=== PATIENT | male | born 1995 | race Caucasian/White ===

== ENCOUNTER 2021-02-02 09:32 | Emergency (ER) | payer OTHER ==
[2021-02-02] MEDS ORDERED: ADVIL 200MG TA200 MG PO (09:40)
[2021-02-02 10:18] LABS: BASO # 0.03 (0.02-0.10); EOS # 0.05 (0.04-0.40); EOS % 0.7 % (0.0-4.0); HEMATOCRIT 39.2 % (42.0-52.0); HEMOGLOBIN 12.2 g/dL (13.5-18.0); MEAN CELL VOLUME 60 fl (78-100); MEAN CORPUSCULAR HEMOGLOBIN 19 pg (27-31); MEAN CORPUSCULAR HGB CONC 31 g/dL (33-37); MEAN PLATELET VOLUME 9.7 fl (7.4-10.4); MONO # 0.37 (0.20-0.80); PLATELET COUNT 269 K/mm3 (130-400); RED BLOOD COUNT 6.49 M/mm3 (4.20-5.60); RED CELL DISTRIBUTION WIDTH 17.9 % (11.5-14.5); WHITE BLOOD COUNT 6.8 K/mm3 (4.8-10.8)
[2021-02-02 10:19] LABS: ALBUMIN 4.5 g/dL (3.5-5.0); POTASSIUM 4.5 mmol/L (3.5-5.1); SODIUM 137 mmol/L (136-145)
[2021-02-02 10:20] LABS: CALCIUM 9.1 mg/dL (8.3-10.5)
[2021-02-02 10:22] LABS: GLUCOSE 108 mg/dL (75-110); TOTAL PROTEIN 7.3 g/dL (6.4-8.3)
[2021-02-02 10:23] LABS: CARBON DIOXIDE 23 mmol/L (22-29); TOTAL BILIRUBIN 0.6 mg/dL (0.2-1.2)
[2021-02-02 10:25] LABS: ALCOHOL IN-HOUSE < 10 mg/dL (<10); URINE APPEARANCE CLEAR; URINE BILIRUBIN NEGATIVE (NEGATIVE); URINE BLOOD NEGATIVE (NEGATIVE); URINE COLOR YELLOW; URINE GLUCOSE NEGATIVE (NEGATIVE); URINE KETONE NEGATIVE (NEGATIVE); URINE LEUKOCYTE ESTERASE NEGATIVE (NEGATIVE); URINE MUCUS PRESENT (NOT PRESENT); URINE NITRATE NEGATIVE (NEGATIVE); URINE PROTEIN(semi-quant) NEGATIVE (NEGATIVE); URINE UROBILINOGEN NORMAL (NORMAL)
[2021-02-02 10:27] LABS: AST-SGOT 17 U/L (5-34)
[2021-02-02 10:28] LABS: ALT/SGPT 18 U/L (0-55)
[2021-02-02 11:11] VITALS: BP 137/62
== END 2021-02-02 11:23 | disposition home or self-care (01) ==
LOC: ED 09:32
PROVIDERS: Physician Assistant
DX: M25.512 Pain in left shoulder (principal); R51.9 Headache, unspecified; M54.2 Cervicalgia; D56.1 Beta thalassemia; V89.2XXA Person injured in unspecified motor-vehicle accident, traffic, initial encounter
CPT/HCPCS: 90714